=== PATIENT | female | born 1980 | race Caucasian/White ===

== ENCOUNTER 2021-07-29 18:41 | Emergency (ER) | payer OTHER, SELFPAY ==
--- NOTE | 2021-07-29 19:41 | ERPHSYRPT ---
- History of Present Illness Time Seen by Provider: 07/29/21 18:55 Source: patient Exam Limitations: no limitations Patient Subjective Stated Complaint: Pt states "I have been weak for a couple days now, I have this rash all over me and I think I passed out up front." Triage Nursing Assessment: Pt presented alert and oriented X 3, skin pwd Pt amb ulates with a slow shuffling gait. PT able to speak in clear full sentences pt in no apparent respiratory distress. Pt has diffuse rash on back, abdomen and bilat arms. PT presented laying on the floor up by registration. Physician History: Patient is a 41-year-old female who presents to our ED for a pruritic rash. Patient reportedly had a syncopal episode which was likely a seizure. Patient states she has a history of seizures. Patient stopped taking her seizure me dications because she did not like the way it made her feel. Patient's neurologist retired and patient does not have a neurologist to follow-up with. Patient states her seizure disorder stems from childhood due to a head injury that was not adequately treated. Patient states that she has a history of hypokalemia and is requesting that we get blood work to check her potassium levels. Patient intermittently feels cramping in her lower extremity muscles. She feels somewhat weak. Patient currently feels well. No pain. Patient's rash is mild to moderate in intensity. No specific worsening improving factors. Patient voices no other complaints at this time. Timing/Duration: yesterday Severity: moderate Modifying Factors: Improves With: nothing Associated Symptoms: denies symptoms, syncope, seizure Allergies/Adverse Reactions: ampicillin Allergy (Mild, Verified 07/29/21 18:49) Rash Penicillins Allergy (Mild, Unverified 05/16/16 12:41) Rash Home Medications: No Reportable Medications [No Reported Medications] 07/29/21 [History] Hx Tetanus, Diphtheria Vaccination/Date Given: No Hx Influenza Vaccination/Date Given: Yes Hx Pneumococcal Vaccination/Date Given: No Immunizations Up to Date: Yes Travel Risk - International Travel Have you traveled outside of the country in past 3 weeks: No - Coronavirus Screening Are you exhibiting any of the following symptoms?: No Close contact with a COVID-19 positive Pt in past 14-21 Days: No - Vaccine Status Have you recieved a Covid-19 vaccination: No - Review of Systems Constitutional: No Symptoms, No Fever, No Chills Eyes: No Symptoms Ears, Nose, & Throat: No Symptoms Respiratory: No Symptoms, No Cough, No Dyspnea Cardiac: No Symptoms, No Chest Pain, No Edema, No Syncope Abdominal/Gastrointestinal: No Symptoms, No Abdominal Pain, No Nausea, No Vomiting, No Diarrhea Genitourinary Symptoms: No Symptoms, No Dysuria Musculoskeletal: No Symptoms, No Back Pain, No Neck Pain Skin: No Symptoms, No Rash Neurological: No Symptoms, No Dizziness, No Focal Weakness, No Sensory Changes Psychological: No Symptoms Endocrine: No Symptoms Hematologic/Lymphatic: No Symptoms Immunological/Allergic: No Symptoms All Other Systems: Reviewed and Negative - Past Medical History Pertinent Past Medical History: Yes Neurological History: Seizures ENT History: No Pertinent History Cardiac History: No Pertinent History Respiratory History: Asthma Endocrine Medical History: No Pertinent History Musculoskeletal History: No Pertinent History GI Medical History: No Pertinent History History: No Pertinent History Psycho-Social History: Depression Female Reproductive Disorders: No Pertinent History - Past Surgical History Past Surgical History: Yes Neuro Surgical History: No Pertinent History Cardiac: No Pertinent History Respiratory: No Pertinent History Gastrointestinal: Cholecystectomy Genitourinary: No Pertinent History Musculoskeletal: No Pertinent History Female Surgical History: Tubal Ligation Other Surgical History: t & a, - Social History Smoking Status: Current every day smoker How long have you smoked: years Exposure to second hand smoke: Yes Drug Use: marijuana Patient Lives Alone: No - Female History Hx Last Menstrual Period: currently Hx Now: No - Nursing Vital Signs Nursing Vital Signs: Initial Vital Signs Temperature 98.4 F 07/29/21 18:42 Pulse Rate 95 H 07/29/21 18:42 Respiratory Rate 20 07/29/21 18:42 Blood Pressure 145/87 07/29/21 18:42 O2 Sat by Pulse Oximetry 98 07/29/21 18:42 Pain Scale Pain Intensity 5 - Physical Exam General Appearance: no apparent distress, alert Eye Exam: PERRL/EOMI, eyes nml inspection Ears, Nose, Throat Exam: normal ENT inspection, TMs normal, pharynx normal, moist mucous membranes Neck Exam: normal inspection, non-tender, supple, full range of motion Respiratory Exam: normal breath sounds, lungs clear, airway intact, No respiratory distress Cardiovascular Exam: regular rate/rhythm, normal heart sounds, normal peripheral pulses Gastrointestinal/Abdomen Exam: soft, normal bowel sounds, No tenderness, No mass Back Exam: normal inspection, normal range of motion, No CVA tenderness, No vertebral tenderness Extremity Exam: normal inspection, normal range of motion, pelvis stable Neurologic Exam: alert, oriented x 3, cooperative, normal mood/affect, nml cerebellar function, nml station & gait, sensation nml, No motor deficits Skin Exam: normal color, warm, dry, No rash Lymphatic Exam: No adenopathy SpO2 Interpretation: normal SpO2: 98 O2 Delivery: Room Air - Course Nursing assessment & vital signs reviewed: Yes EKG Interpreted by Me: RATE ([id number]), Sinus Rhythm, NORMAL AXIS, NORMAL INTERVALS Ordered Tests: Active Orders 24 hr Category Date Time Status [employer] Dean STAT Care 07/29/21 19:43 Active EKG-ER Only STAT Care 07/29/21 19:41 Active IV Insertion STAT Care 07/29/21 19:41 Active Pulse Oximetry (ED) STAT Care 07/29/21 19:41 Active CBC W DIFF Stat Lab 07/29/21 19:45 Completed CMP Stat Lab 07/29/21 19:45 Completed TROPONIN Q3H Lab 07/29/21 19:45 Completed TROPONIN Q3H Lab 07/29/21 22:45 Ordered TROPONIN Q3H Lab 07/30/21 01:45 Ordered TROPONIN Q3H Lab 07/30/21 04:45 Ordered TROPONIN Q3H Lab 07/30/21 07:45 Ordered UA W/RFX UR CULTURE Stat Lab 07/29/21 19:42 Ordered Medication Summary Discontinued Medications Generic Name Dose Route Start Last Admin Trade Name Freq PRN Reason Stop Dose Admin Diphenhydramine HCl 25 mg 07/29/21 20:57 07/29/21 21:01 Benadryl 50 Mg/Ml IV 07/29/21 20:58 25 mg STAT ONE Administration Diphenhydramine HCl Confirm 07/29/21 20:59 Benadryl 50 Mg/Ml Administered 07/29/21 21:00 Dose 50 mg .ROUTE .STK-MED ONE Prednisone 40 mg 07/29/21 20:56 07/29/21 21:01 Deltasone 20 Mg PO 07/29/21 20:57 40 mg ONCE STA Administration Prednisone Confirm 07/29/21 20:59 Deltasone 20 Mg Administered 09/14/21 21:00 Dose 40 mg .ROUTE .[facility]-MED ONE Lab/Rad Data: Laboratory Result Diagrams 07/29/21 19:45 07/29/21 19:45 Laboratory Results 07/29/21 07/29/21 07/29/21 Range/Units 19:45 19:45 19:45 WBC 3.7 L (4.0-10.5) K/mm3 RBC 4.73 (4.1-5.4) M/mm3 Hgb 15.3 (12.0-16.0) gm/dl Hct 44.6 (35-47) % MCV 94.3 (78-100) fl MCH 32.3 H (26-32) pg MCHC 34.3 (32-36) g/dl RDW 12.1 (11.5-14.0) % Plt Count 199 (150-450) K/mm3 MPV 11.5 H (7.5-11.0) fl Gran % 40.8 (36.0-66.0) % Eos # (Auto) 0.22 (0-0.5) Absolute Lymphs (auto) 1.43 (1.0-4.6) Absolute Monos (auto) 0.51 (0.0-1.3) Lymphocytes % 39.0 (24.0-44.0) % Monocytes % 13.9 H (0.0-12.0) % Eosinophils % 6.0 H (0.00-5.0) % Basophils % 0.3 (0.0-0.4) % Absolute Granulocytes 1.50 (1.4-6.9) Basophils # 0.01 (0-0.4) Sodium 139 (137-145) mmol/L Potassium 3.7 (3.5-5.1) mmol/L Chloride 106 (98-107) mmol/L Carbon Dioxide 21 L (22-30) mmol/L Anion Gap 16.4 H (5-15) MEQ/L BUN 16 (7-17) mg/dL Creatinine 0.63 (0.52-1.04) mg/dL Estimated GFR > 60.0 ML/MIN Glucose 96 (74-106) mg/dL Calcium 8.7 (8.4-10.2) mg/dL Total Bilirubin 0.60 (0.2-1.3) mg/dL AST 43 H (14-36) U/L ALT 22 (0-35) U/L Alkaline Phosphatase 51 (38-126) U/L Troponin I 0.031 (0.000-0.034) ng/mL Serum Total Protein 7.9 (6.3-8.2) g/dL Albumin 4.6 (3.5-5.0) g/dL - Progress Progress Note: Patient left our ED before ER physician could review labs and discuss findings with patient. Patient states her ride was available when she could not wait. Patient discharged AGAINST MEDICAL ADVICE. Patient absconded. 07/29/21 21:55 Patient received a dose of Benadryl and prednisone for her rash. 07/29/21 21:56 - Departure Departure Disposition: AMA Clinical Impression: Pruritic rash, Noncompliance with medication regimen Condition: Stable Critical Care Time: No Referrals: DOCTOR,NO FAMILY [Primary Care Provider] - Additional Instructions: Discharge/Care Plan ADRIANA QUIROS was seen on 07/29/21 in the Emergency Room. The patient was counseled regarding Diagnosis,Lab results, Imaging studies, need for follow up and when to return to the Emergency Room. Prescriptions given: Discharge Note I have spoken with the patient and/or caregivers. I have explained the patient's condition, diagnosis and treatment plan based on the information available to me at this time. I have answered the patient's and/or caregiver's questions and addressed any concerns. The patient and/or caregivers have as good understanding of the patient's diagnosis, condition and treatment plan as can be expected at this point. The vital signs have been stable. The patient's condition is stable and appropriate for discharge from the emergency department. The patient will pursue further outpatient evaluation with the primary care physician or other designated or consulting physician as outlined in the discharge instructions. The patient and/or caregivers are agreeable to this plan of care and follow-up instructions have been explained in detail. The patient and/or caregivers have received these instruction. The patient/and or caregivers are aware that any significant change in condition or worsening of symptoms should prompt an immediate return to this or the closest emergency department or call 911.
[2021-07-29 19:49] LABS: BASOPHIL % 0.3 % (0.0-0.4); Basophil (Absolute #) 0.01 (0-0.4); Eosinophil (Absolute #) 0.22 (0-0.5); Hematocrit 44.6 % (35-47); Hemoglobin 15.3 gm/dl (12.0-16.0); Lymphocyte (Absolute #) 1.43 (1.0-4.6); Mean Cell Volume 94.3 fl (78-100); Mean Corpuscular Hemoglobin 32.3 pg (26-32); Mean Corpuscular Hgb Concent. 34.3 g/dl (32-36); Mean Platelet Volume 11.5 fl (7.5-11.0); Monocyte (Absolute #) 0.51 (0.0-1.3); Monocytes % 13.9 % (0.0-12.0); Neutrophil % 40.8 % (36.0-66.0); Platelet Count 199 K/mm3 (150-450); Red Blood Count 4.73 M/mm3 (4.1-5.4); Red Cell Distribution Width 12.1 % (11.5-14.0); White Blood Count 3.7 K/mm3 (4.0-10.5)
[2021-07-29 19:58] LABS: ALBUMIN 4.6 g/dL (3.5-5.0); ALKALINE PHOSPHATASE 51 U/L (38-126); ANION GAP 16.4 MEQ/L (5-15); BLOOD UREA NITROGEN 16 mg/dL (7-17); CHLORIDE 106 mmol/L (98-107); Calcium 8.7 mg/dL (8.4-10.2); Carbon Dioxide 21 mmol/L (22-30); Creatinine 1 0.63 mg/dL (0.52-1.04); EST GLOMERULAR FILTRATION RATE > 60.0 ML/MIN; Glucose 96 mg/dL (74-106); Potassium 3.7 mmol/L (3.5-5.1); SGOT/AST 43 U/L (14-36); SGPT/ALT 22 U/L (0-35); SODIUM 139 mmol/L (137-145); Total Protein 7.9 g/dL (6.3-8.2)
[2021-07-29] MEDS ORDERED: DELTASONE 20 MG PO STA (20:56)
[2021-07-29] MEDS ORDERED: BENADRYL 50 MG/ML IV ONE (20:57)
[2021-07-29] MEDS ORDERED: DELTASONE 20 MG ONE (20:59)
[2021-07-29] MEDS ORDERED: BENADRYL 50 MG/ML ONE (20:59)
[2021-07-29 21:57] VITALS: O2SAT 98
[2021-07-29 22:08] VITALS: BP 144/71; PULSE 70
== END 2021-07-29 21:45 | disposition left against medical advice (07) ==
LOC: ED 18:41
DX: L29.9 Pruritus, unspecified (principal); Z91.14 Patient's other noncompliance with medication regimen
CPT/HCPCS: 36000; 36415; 80053; 84484; 85025; 93005; 94760; 96374; 99284; J1200; A9270-GY